=== PATIENT | male | born 1990 | race Caucasian/White ===

== ENCOUNTER 2017-06-03 21:45 | Emergency (ER) | payer OTHER ==
[~2017-06-03] VITALS: Ht 188 cm; Wt 158.8 kg
[2017-06-03 22:04] VITALS: BP 134/91
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
[2017-06-03] MEDS ORDERED: DIPHTH,PERTUSS(ACELL),TET TOX 0.5 ML DISP.SYRIN. VAX IM ONE (22:30)
--- NOTE | 2017-06-03 23:03 | RAD ---
CT head without intravenous contrast History: Closed head injury, neck pain. Comparison: None. Technique: Axial images are obtained of the head from the skull base through the vertex without IV contrast. Exposure: One or more of the following individualized dose reduction techniques were utilized for this examination: 1. Automated exposure control 2. Adjustment of the mA and/or kV according to patient size 3. Use of iterative reconstruction technique Findings: The ventricles are appropriate in size, shape, and location for the patient's age. No obvious intracranial mass, mass-effect, midline shift, hemorrhage or obvious acute infarction is identified. Basilar cisterns are patent. Bone windows demonstrate no acute calvarial abnormality. The visualized paranasal sinuses appear clear. Impression: 1. No acute intracranial process. CT cervical spine Technique: Noncontrast CT of the cervical spine was performed using helical technique. Axial, sagittal, coronal reconstructions were obtained. Exposure: One or more of the following individualized dose reduction techniques were utilized for this examination: 1. Automated exposure control 2. Adjustment of the mA and/or kV according to patient size 3. Use of iterative reconstruction technique Findings: There is no evidence of acute fracture or acute malalignment involving the cervical spine. No prevertebral soft tissue swelling is identified. Multilevel degeneration is seen with facet and uncovertebral hypertrophy. Impression: No evidence of acute traumatic injury involving the cervical spine. Electronically signed by: Dami Collazo MD (06/03/2017 10:59 PM) [facility]
[2017-06-03] MEDS ORDERED: IBUP-1060 PO (23:34)
--- NOTE | 2017-06-04 07:32 | RAD ---
Indication: Pain after a fall. Technique: 3 views of the right knee are submitted for review. No comparison is available. Findings: There is no fracture or dislocation. There is no joint effusion or soft tissue swelling. Impression: Negative for fracture.
--- NOTE | 2017-06-04 07:34 | RAD ---
Indication: Pain in both hands after a fall today. Technique: Bilateral three-view hands was obtained. No comparison is available. Findings: No fracture or dislocation is apparent. There is no soft tissue swelling. There appears to be a small bone island in the right trapezium. Impression: Negative for fracture.
== END 2017-06-03 23:45 | disposition home or self-care (01) ==
LOC: ER 21:45
DX: S60.512A Abrasion of left hand, initial encounter (principal); S60.511A Abrasion of right hand, initial encounter; S80.211A Abrasion, right knee, initial encounter; S09.90XA Unspecified injury of head, initial encounter; Z88.0 Allergy status to penicillin; V89.2XXA Person injured in unspecified motor-vehicle accident, traffic, initial encounter; Y93.89 Activity, other specified; Y99.8 Other external cause status; Y92.488 Other paved roadways as the place of occurrence of the external cause
CPT/HCPCS: 70450; 72125; 73130; 73562; 99284-25